=== PATIENT | female | born 1970 | race Caucasian/White ===

== ENCOUNTER 2022-01-01 09:35 | Emergency (ER) | payer OTHER ==
[~2022-01-01] VITALS: Ht 172.7 cm; Wt 63.5 kg
[~2022-01-01 09:35] MED LIST: FLONASE SENSIM5.9 ML; SUDAFED 12 HOU120 MG PO
[2022-01-01] MEDS ORDERED: BUDESONIDE0.25 MG/2 INH (14:41)
[2022-01-01] MEDS ORDERED: SUDAFED 12-HOU120 MG PO (14:41)
[2022-01-02] MEDS ORDERED: ATIVAN1 MG PO (08:19)
== END 2022-01-01 10:55 | disposition home or self-care (01) ==
LOC: ED 09:35
DX: R55 Syncope and collapse (principal)
CPT/HCPCS: A9270

== ENCOUNTER 2022-01-02 08:00 | Day surgery (SDC) | payer OTHER ==
[~2022-01-02] VITALS: Ht 172.7 cm; Wt 64.0 kg
--- NOTE | ~2022-01-02 | OR ---
[facility] [address], [place] [address] [employer] DATE OF OPERATION: 01/02/2022 SURGEON: Doug Cunha MD PREOPERATIVE DIAGNOSIS: Bilateral eustachian tube dysfunction with atrophic eardrums. POSTOPERATIVE DIAGNOSIS: Bilateral eustachian tube dysfunction with atrophic eardrums. PROCEDURE: Bilateral myringotomy and ventilation tube insertion, Trejo tubes. ANESTHESIA: General mask; LINE PREP COOK, Luther. PREOPERATIVE HISTORY: Josette is a 51-year-old lady with a long history of ear problems, multiple procedures in the past exam that showed a conductive hearing loss. Eardrums in the office have showed some atrophy. Floppiness of the eardrums. She was taken to the operating for the above-mentioned procedures. PROCEDURE AND FINDINGS: After informed consent, the patient was taken to the operating room, placed in the supine position where general mask anesthesia was induced. The patient and procedure were verified. The right ear was examined with the operating microscope. The eardrum was bulging very atrophic. Anterior-inferior radial myringotomy was made. No middle ear effusion. Trejo tube placed in myringotomy site. Cipro ophthalmic drops applied to the ear canal. Cotton ball to meatus. Same procedure on the left ear. Eardrum was also bulging on this side, but not quite as much as the right tube was placed, drops, cotton ball. The patient tolerated the procedure well, was awakened, transported to recovery room in good condition. No complications. BLOOD LOSS: Minimal. SPECIMENS: None. DRAINS: PATIENT NAME: JOSETTE CARRILLO OPERATIVE REPORT DATE OF : 70 REPORT #: [id number] PHYSICIAN: DOUG CUNHA MD PCP: NO PRIMARY CARE PHYSICIAN REPORT IS CONFIDENTIAL AND NOT TO BE RELEASED WITHOUT AUTHORIZATION [address] [place], [place] [address] [facility] None. Doug Cunha MD GC/ANTHONY /[id number] Copies: ~ PATIENT NAME: JOSETTE CARRILLO OPERATIVE REPORT DATE OF : 70 REPORT #: [id number] PHYSICIAN: DOUG CUNHA MD PCP: NO PRIMARY CARE PHYSICIAN REPORT IS CONFIDENTIAL AND NOT TO BE RELEASED WITHOUT AUTHORIZATION
[~2022-01-02 08:00] MED LIST changes: +BUDESONIDE0.25 MG/2 INH; +SUDAFED 12-HOU120 MG PO
[2022-01-02] MEDS ORDERED: ATIVAN1 MG PO (08:19)
== END 2022-01-02 10:25 | disposition home or self-care (01) ==
LOC: OPS 08:00 → DS 08:00 → OPS 09:00
PROVIDERS: ATTEND Otolaryngology
PROC: 099500Z Drainage of Right Middle Ear with Drainage Device, Open Approach (ICD-10-PCS; 2022-01-02)
PROC: 099600Z Drainage of Left Middle Ear with Drainage Device, Open Approach (ICD-10-PCS; principal; 2022-01-02 09:00)
DX: H69.93 Unspecified Eustachian tube disorder, bilateral (principal); H73.823 Atrophic nonflaccid tympanic membrane, bilateral; Z91.048 Other nonmedicinal substance allergy status
CPT/HCPCS: 36415; 85025; J0131; J2001; J2405; J2704; J3010; J7121